=== PATIENT | female | born 1970 | race Caucasian/White ===

== ENCOUNTER 2017-07-21 15:45 | Observation (INO) | payer OTHER ==
--- NOTE | 2017-07-21 15:55 | PDOC ---
History of Present Illness <Mike Sahu - Last Filed: 07/21/17 15:55> - General History Source: Patient Exam Limitations: No Limitations - History of Present Illness Initial Comments: 07/21/17 16:25 46 year old female, no significant pmh, who presents to the emergency room complaining of LLQ pain that has been intermittent over the past 4 days, but significantly worsened and became constant this morning. She describes the pain as 9/10 in severity and localized to the LLQ. She noticed that the pain worsens with eating and the last time she ate was last night. She notes that she had a normal bowel movement this morning. Her menstrual cycle is irregular and her LMP was 4 months ago. Denies fever, chills, nausea, vomiting. Denies dysuria, frequency, hematuria. Denies vaginal bleeding, vaginal discharge. Allergies: NKDA Surgical hx: 3 C-sections <Kristina Brand - Last Filed: 07/21/17 16:52> - General Chief Complaint: Pain Stated Complaint: ABD PAIN Time Seen by Provider: 07/21/17 15:55 Past History - Past Medical History Anemia: Yes Asthma: No Diabetes: Yes HTN: No - Surgical History Abdominal Surgery: No - Suicide/Smoking/Psychosocial Hx Smoking Status: No Smoking History: Never smoked Number of Cigarettes Smoked Daily: 0 Cigars Per Day: 0 Hx Alcohol Use: No Drug/Substance Use Hx: No Substance Use Type: None <Mike Sahu - Last Filed: 07/21/17 15:55> <Kristina Brand - Last Filed: 07/21/17 16:52> - Past Medical History Allergies/Adverse Reactions: Allergies Allergy/AdvReac Type Severity Reaction Status Date / Time No Known Allergies Allergy Verified 03/17/15 09:32 Home Medications: Ambulatory Orders NK [No Known Home Medication] 07/21/17 Abd/GI Specific PMHX - Complaint Specific PMHX Colitis: No Diverticulitis: No Gall Bladder Disease: No GERD: No Hepatitis: No Irritable Bowel Synd (IBS): No Pancreatitis: No GI Ulcer Disease: No <Mike Sahu - Last Filed: 07/21/17 15:55> Review of Systems - Review of Systems Able to Perform ROS?: Yes Comments:: 07/21/17 16:27 CONSTITUTIONAL: Absent: fever, chills, diaphoresis, generalized weakness, malaise, loss of appetite HEENT: Absent: rhinorrhea, nasal congestion, throat pain, throat swelling, difficulty swallowing, mouth swelling, ear pain, eye pain, visual Changes CARDIOVASCULAR: Absent: chest pain, syncope, palpitations, irregular heart rate, lightheadedness , peripheral edema RESPIRATORY: Absent: cough, shortness of breath, dyspnea with exertion, orthopnea, wheezing, stridor, hemoptysis GASTROINTESTINAL: Present: LLQ abdominal pain. Absent: abdominal distension, nausea, vomiting, diarrhea, constipation, melena, hematochezia GENITOURINARY: Absent: dysuria, frequency, urgency, hesitancy, hematuria, flank pain, genital pain MUSCULOSKELETAL: Absent: myalgia, arthralgia, joint swelling SKIN: Absent: rash, itching, pallor HEMATOLOGIC/IMMUNOLOGIC: Absent: easy bleeding, easy bruising, lymphadenopathy, frequent infections ENDOCRINE: Absent: unexplained weight gain, unexplained weight loss, heat intolerance, cold intolerance NEUROLOGIC: Absent: headache, focal weakness or paresthesias, dizziness, unsteady gait, seizure, mental status changes, bladder or bowel incontinence PSYCHIATRIC: Absent: anxiety, depression, suicidal or homicidal ideation, hallucinations. <Kristina Brand - Last Filed: 07/21/17 16:52> *Physical Exam - Vital Signs Last Vital Signs Temp Pulse Resp BP Pulse Ox 98.6 F 90 18 139/91 96 07/21/17 15:45 07/21/17 15:45 07/21/17 15:45 07/21/17 15:45 07/21/17 15:45 <Mike Sahu - Last Filed: 07/21/17 15:55> - Vital Signs Last Vital Signs Temp Pulse Resp BP Pulse Ox 98.6 F 90 18 139/91 96 07/21/17 15:45 07/21/17 15:45 07/21/17 15:45 07/21/17 15:45 07/21/17 15:45 - Physical Exam Comments: 07/21/17 16:27 GENERAL: Well developed, well nourished. Awake and alert. In no acute distress. No pallor or icterus apparent. HEENT: Normocephalic, atraumatic. PERRLA, EOMI. No conjunctival pallor. Sclera are non- icteric. Moist mucous membranes. Oropharynx is clear. NECK: Supple. Full ROM. No JVD. Carotid pulses 2+ and symmetric, without bruits. No thyromegaly. No lymphadenopathy. CARDIOVASCULAR: Regular rate and rhythm. No murmurs, rubs, or gallops. Distal pulses are 2+ and symmetric. PULMONARY: No evidence of respiratory distress. Lungs clear to auscultation bilaterally. No wheezing, rales or rhonchi. ABDOMINAL: Soft. Non-distended. Midline scar from 3 prior C-sections, but no other surgery. Significant tenderness to palpation localized to the LLQ. There is some voluntary guarding, but no rebound tenderness. Hydration is adequate. Normoactive bowel sounds. PELVIC: External genitalia normal, no erythema and lesions. Cervix nulliparous without lesions. Uterus is firm and nontender not enlarged. No cervical motion tenderness. No adnexal tenderness. RECTAL: no masses and tenderness. Stool is light brown. Sent for guaiac. MUSCULOSKELETAL Normal range of motion at all joints. No bony deformities or tenderness. No CVA tenderness. EXTREMITIES: No cyanosis. No clubbing. No edema. No calf tenderness. SKIN: Warm and dry. Normal capillary refill. No rashes. No jaundice. NEUROLOGICAL: Alert, awake, appropriate. Cranial nerves 2-12 intact. PSYCHIATRIC: Cooperative. Good eye contact. Appropriate mood and affect. <Kristina Brand - Last Filed: 07/21/17 16:52> ED Treatment Course - LABORATORY CBC & Chemistry Diagram: 07/21/17 16:15 07/21/17 16:15 <Kristina Brand - Last Filed: 07/21/17 16:52> *DC/Admit/Observation/Transfer <Mike Sahu - Last Filed: 07/21/17 15:55> - Attestations Scribe Attestion: 07/21/17 16:28 Documentation prepared by KARTIK Herman, acting as medical review coordinator for Mike Sahu MD. <Kristina Brand - Last Filed: 07/21/17 16:52> - Discharge Dispostion Condition at time of disposition: Stable
[2017-07-21] MEDS ORDERED: KETOROLAC TROMETHAMINE 30 MG/1 ML VIAL IVPUSH ONE (16:24)
[2017-07-21] MEDS ORDERED: ONDANSETRON 4 MG/2 ML VIAL IVPB ONE (16:24)
[2017-07-21] MEDS ORDERED: ONDANSETRON 4 MG/2 ML VIAL ONE (16:26)
[2017-07-21] MEDS ORDERED: KETOROLAC TROMETHAMINE 30 MG/1 ML VIAL ONE (16:26)
[2017-07-21 16:35] LABS: BASOPHIL 0.9 % (0-2.0); EOSINOPHIL 1.7 % (0-4.5); MCH 27.3 pg (25.7-33.7); MCHC 33.3 g/dl (32.0-36.0); MEAN CELL VOLUME 81.8 fl (80-96); MEAN PLT VOLUME 8.8 fl (7.5-11.1); NEUTROPHILS 68.1 % (42.8-82.8); PLATELET COUNT 346 K/MM3 (134-434); RDW 13.4 % (11.6-15.6); WHITE BLOOD COUNT 9.5 K/mm3 (4.0-10.8)
[2017-07-21 16:42] LABS: URINE APPEARANCE Clear; URINE BILIRUBIN Negative (NEGATIVE); URINE BLOOD Trace-intact (NEGATIVE); URINE COLOR YELLOW; URINE GLUCOSE (UA) Negative (NEGATIVE); URINE KETONE Negative (NEGATIVE); URINE LEUK ESTERASE Negative (NEGATIVE); URINE NITRITE Negative (NEGATIVE); URINE PROTEIN Negative (NEGATIVE); URINE UROBILINOGEN 0.2 (0.2-1.0)
[2017-07-21 16:49] LABS: ALK PHOS 86 U/L (32-92); ANION GAP 9 (8-16); BILIRUBIN,TOTAL 0.4 mg/dl (0.2-1.0); CALCIUM 9.7 mg/dl (8.4-10.2); CO2 26 mmol/L (22-28); CREATININE 0.7 mg/dl (0.6-1.3); GLUCOSE,RANDOM 166 mg/dl (74-106); SGOT/AST 67 U/L (10-42); SGPT/ALT 70 U/L (10-40); TOT PROT 7.2 g/dl (6.4-8.3)
[2017-07-21 17:20] LABS: URINE WBC 0-1 (3-5)
--- NOTE | 2017-07-21 19:31 | PDOC ---
*Physical Exam - Vital Signs Last Vital Signs Temp Pulse Resp BP Pulse Ox 98.6 F 90 18 139/91 96 07/21/17 15:45 07/21/17 15:45 07/21/17 15:45 07/21/17 15:45 07/21/17 15:45 <CathieKristina - Last Filed: 07/21/17 21:04> - Vital Signs Last Vital Signs Temp Pulse Resp BP Pulse Ox 98.6 F 90 18 139/91 96 07/21/17 15:45 07/21/17 15:45 07/21/17 15:45 07/21/17 15:45 07/21/17 15:45 <Teo Del Rio I - Last Filed: 07/21/17 21:36> ED Treatment Course - LABORATORY CBC & Chemistry Diagram: 07/21/17 16:15 07/21/17 16:15 - ADDITIONAL ORDERS Additional order review: Laboratory Results 07/21/17 07/21/17 07/21/17 16:45 16:39 16:15 Sodium 134 L Potassium 4.0 Chloride 99 Carbon Dioxide 26 Anion Gap 9 BUN 16 Creatinine 0.7 D Creat Clearance w eGFR > 60 Random Glucose 166 H D Calcium 9.7 Total Bilirubin 0.4 AST 67 H D ALT 70 H D Alkaline Phosphatase 86 D Total Protein 7.2 Albumin 4.0 Urine Color Yellow Urine Appearance Clear Urine pH 7.0 D Ur Specific [place] 1.020 Urine Protein Negative Urine Glucose (UA) Negative Urine Ketones Negative Urine Blood Trace-intact H Urine Nitrite Negative Urine Bilirubin Negative Urine Urobilinogen 0.2 Ur Leukocyte Esterase Negative Urine RBC 2-4 Urine WBC 0-1 Urine HCG, Qual Negative Stool Occult Blood Negative 07/21/17 16:15 RBC 4.86 MCV 81.8 D MCHC 33.3 RDW 13.4 D MPV 8.8 D Neutrophils % 68.1 Lymphocytes % 23.4 Monocytes % 5.9 Eosinophils % 1.7 Basophils % 0.9 - RADIOLOGY Radiograph Interpretation: 07/21/17 20:07 EXAM#: TYPE/EXAM: RESULT: [id number] CT/ABDOMEN PELVIS CT WITH CONTR Exam: CT abdomen and pelvis with contrast. Impression: 1. Acute sigmoid diverticulitis as described above with two punctate extraluminal gas locules adjacent to the inflamed sigmoid colon suggesting contained microperforation. No drainable collection within the abdomen or pelvis. 2. Hepatomegaly and severe hepatic steatosis. Areas of relative hyperattenuation in the liver as described above most likely represent geographic areas of fatty sparing and/or vascular changes ( i.e. [place]). Reported By: Sancho Mercado MD 07/21/171999 - Medications Given in the ED: ED Medications Discontinued Medications Generic Name Dose Route Start Last Admin Trade Name Freq PRN Reason Stop Dose Admin Ketorolac Tromethamine 30 mg 07/21/17 16:24 07/21/17 16:32 Toradol Injection - IVPUSH 07/21/17 16:25 30 mg ONCE ONE Administration Ondansetron HCl 4 mg 07/21/17 16:24 07/21/17 16:30 Zofran Injection IVPB 07/21/17 16:25 4 mg ONCE ONE Administration <Kristina Brand - Last Filed: 07/21/17 21:04> - LABORATORY CBC & Chemistry Diagram: 07/21/17 16:15 07/21/17 16:15 - ADDITIONAL ORDERS Additional order review: Laboratory Results 07/21/17 07/21/17 07/21/17 16:45 16:39 16:15 Sodium 134 L Potassium 4.0 Chloride 99 Carbon Dioxide 26 Anion Gap 9 BUN 16 Creatinine 0.7 D Creat Clearance w eGFR > 60 Random Glucose 166 H D Calcium 9.7 Total Bilirubin 0.4 AST 67 H D ALT 70 H D Alkaline Phosphatase 86 D Total Protein 7.2 Albumin 4.0 Urine Color Yellow Urine Appearance Clear Urine pH 7.0 D Ur Specific [place] 1.020 Urine Protein Negative Urine Glucose (UA) Negative Urine Ketones Negative Urine Blood Trace-intact H Urine Nitrite Negative Urine Bilirubin Negative Urine Urobilinogen 0.2 Ur Leukocyte Esterase Negative Urine RBC 2-4 Urine WBC 0-1 Urine HCG, Qual Negative Stool Occult Blood Negative 07/21/17 16:15 RBC 4.86 MCV 81.8 D MCHC 33.3 RDW 13.4 D MPV 8.8 D Neutrophils % 68.1 Lymphocytes % 23.4 Monocytes % 5.9 Eosinophils % 1.7 Basophils % 0.9 - Medications Given in the ED: ED Medications Discontinued Medications Generic Name Dose Route Start Last Admin Trade Name Freq PRN Reason Stop Dose Admin Ketorolac Tromethamine 30 mg 07/21/17 16:24 07/21/17 16:32 Toradol Injection - IVPUSH 07/21/17 16:25 30 mg ONCE ONE Administration Ondansetron HCl 4 mg 07/21/17 16:24 07/21/17 16:30 Zofran Injection IVPB 07/21/17 16:25 4 mg ONCE ONE Administration <Teo Del Rio I - Last Filed: 07/21/17 21:36> Progress Note - Progress Note Progress Note: Care of this patient was transferred to [place] from Dr. Pires at 1900 hrs. This is a 46-year-old female comes in complaining of left lower quadrant abdominal pain. Patient has a workup in progress including a CAT scan that is still pending. Otherwise patient's workup is relatively unremarkable with a normal white count and no left shift. Mildly elevated glucose sodium is a little bit low and LFTs are mildly elevated otherwise chemistries were unremarkable. Discussed the CAT scan findings with Dr. Carreno who recommended patient be placed in an observation bed overnight and reevaluated in the morning to make sure that her symptoms have improved she remains afebrile her white count remains normal and she is able to tolerate by mouth's in addition to that patient doesn't have a primary care doctor to follow-up with so we will contact her with a GI <Teo Del Rio I - Last Filed: 07/21/17 21:36> Medical Decision Making - Medical Decision Making 07/21/17 21:[address] Carreno for doctor to doctor consult at 8:17pm Second page at 9:04pm. Connected and spoke with Dr. Hammond. <Kristina Brand - Last Filed: 07/21/17 21:04> *DC/Admit/Observation/Transfer <Kristina Brand - Last Filed: 07/21/17 21:04> - Discharge Dispostion Admit: Yes <Teo Del Rio I - Last Filed: 07/21/17 21:36> Diagnosis at time of Disposition: Diverticulitis Qualifiers: Diverticulitis site: large intestine Diverticulitis bleeding: without bleeding Diverticulitis complication: with perforation and without abscess Qualified Code (s): K57.20 - Diverticulitis of large intestine with perforation and abscess without bleeding - Discharge Dispostion Condition at time of disposition: Stable
[2017-07-21] MEDS ORDERED: METRONIDAZOLE 500 MG PREMIXED 100 ML IVPB ONE ×2 (20:13→20:22)
[2017-07-21] MEDS ORDERED: LEVOFLOXACIN 500 MG IVPB 100 ML IVPB ONE ×3 (20:21→20:29)
[2017-07-21] MEDS ORDERED: ONDANSETRON 4 MG/2 ML VIAL IVPUSH PRN (21:27)
[2017-07-21] MEDS ORDERED: morphine CARPU-JECT 4 MG/1 ML DISP.SYRIN IVPUSH ONE (21:32)
[2017-07-21] MEDS ORDERED: morphine SULFATE 4 MG/ML VIAL ONE (21:41)
[2017-07-21 22:21] VITALS: BMI 41.5
[2017-07-21] MEDS: SODIUM CHLORIDE 1,000 ML IV SCH (22:33)
[2017-07-21] MEDS: INSULIN SLIDING SCALE (NOVOLOG) 1 VIAL SQ SCH (22:34)
--- NOTE | 2017-07-21 23:05 | HP ---
CHIEF COMPLAINT: LLQ abd pain PCP: Dr Plaza HISTORY OF PRESENT ILLNESS: This is a 46 year old female with a significant past medical history of pre- diabetes who presented to the ED with a 4 day history of abdominal pain. The pain was intermittent and crampy until this morning around 10am when it became persistent and severe. She denies N,V,D. ER course was notable for: (1) WBC 9.5 (2) Glucose 166, sodium 134 (3) CT Abd pelvis c/w diverticulitis with microperforations Recent Travel: pt denies PAST MEDICAL HISTORY: pre DM Anemia abscess-Perirectal? pilonidal cyst? PAST SURGICAL HISTORY: Social History: Smoking: pt denies Alcohol: pt denies Drugs: pt denies Family History: mother with DM, HTN, arthritis father with DM, HTN 7 sisters, 1 with DM, HTN 2 brothers, no medical problems 3 children all healthy Allergies No Known Allergies Allergy (Verified 03/17/15 09:32) HOME MEDICATIONS: 3 Medication Instructions Recorded NK [No Known Home Medication] 07/21/17 REVIEW OF SYSTEMS CONSTITUTIONAL: Absent: fever, chills, diaphoresis, generalized weakness, malaise, loss of appetite, weight change HEENT: Absent: rhinorrhea, nasal congestion, throat pain, throat swelling, difficulty swallowing, mouth swelling, ear pain, eye pain, visual changes CARDIOVASCULAR: Absent: chest pain, syncope, palpitations, irregular heart rate, lightheadedness , peripheral edema RESPIRATORY: Absent: cough, shortness of breath, dyspnea with exertion, orthopnea, wheezing, stridor, hemoptysis GASTROINTESTINAL: abdominal pain Absent: abdominal distension, nausea, vomiting, diarrhea, constipation, melena, hematochezia GENITOURINARY: Absent: dysuria, frequency, urgency, hesitancy, hematuria, flank pain, genital pain MUSCULOSKELETAL: Absent: myalgia, arthralgia, joint swelling, back pain, neck pain SKIN: Absent: rash, itching, pallor HEMATOLOGIC/IMMUNOLOGIC: Absent: easy bleeding, easy bruising, lymphadenopathy, frequent infections ENDOCRINE: Absent: unexplained weight gain, unexplained weight loss, heat intolerance, cold intolerance NEUROLOGIC: Absent: headache, focal weakness or paresthesias, dizziness, unsteady gait, seizure, mental status changes, bladder or bowel incontinence PSYCHIATRIC: Absent: anxiety, depression, suicidal or homicidal ideation, hallucinations. PHYSICAL EXAMINATION Vital Signs - 24 hr 3 07/21/17 07/21/17 15:45 21:36 Temperature 98.6 F 98.3 F Pulse Rate 90 Respiratory 18 Rate Blood Pressure 139/91 O2 Sat by Pulse 96 Oximetry (%) GENERAL: Awake, alert, and fully oriented, in no acute distress. HEAD: Normal with no signs of trauma. EYES: Pupils equal, round and reactive to light, extraocular movements intact, sclera anicteric, conjunctiva clear. No lid lag. EARS, NOSE, THROAT: Ears normal, nares patent, oropharynx clear without exudates. Moist mucous membranes. NECK: Normal range of motion, supple without lymphadenopathy, JVD, or masses. LUNGS: Breath sounds equal, clear to auscultation bilaterally. No wheezes, and no crackles. No accessory muscle use. HEART: Regular rate and rhythm, normal S1 and S2 without murmur, rub or gallop. ABDOMEN: Obese, Soft, not distended, normoactive bowel sounds, + guarding, no rebound, no masses. No hepatomegaly or splenomegaly. B/L LQ pain, L>R MUSCULOSKELETAL: Normal range of motion at all joints. No bony deformities or tenderness. No CVA tenderness. UPPER EXTREMITIES: 2+ pulses, warm, well-perfused. No cyanosis. No clubbing. No peripheral edema. LOWER EXTREMITIES: 2+ pulses, warm, well-perfused. No calf tenderness. No peripheral edema. NEUROLOGICAL: Cranial nerves II-XII intact. Normal speech. Normal gait. PSYCHIATRIC: Cooperative. Good eye contact. Appropriate mood and affect. SKIN: Warm, dry, normal turgor, no rashes or lesions noted, normal capillary refill. Laboratory Results - last 24 hr 3 07/21/17 07/21/17 07/21/17 07/21/17 16:15 16:15 16:39 16:45 WBC 9.5 D RBC 4.86 Hgb 13.3 D Hct 39.8 D MCV 81.8 D MCH 27.3 D MCHC 33.3 RDW 13.4 D Plt Count 346 D MPV 8.8 D Neutrophils % 68.1 Lymphocytes % 23.4 Monocytes % 5.9 Eosinophils % 1.7 Basophils % 0.9 Sodium 134 L Potassium 4.0 Chloride 99 Carbon Dioxide 26 Anion Gap 9 BUN 16 Creatinine 0.7 D Creat Clearance w eGFR > 60 POC Glucometer Random Glucose 166 H D Calcium 9.7 Total Bilirubin 0.4 AST 67 H D ALT 70 H D Alkaline Phosphatase 86 D Total Protein 7.2 Albumin 4.0 Urine Color Yellow Urine Appearance Clear Urine pH 7.0 D Ur Specific [place] 1.020 Urine Protein Negative Urine Glucose (UA) Negative Urine Ketones Negative Urine Blood Trace-intact H Urine Nitrite Negative Urine Bilirubin Negative Urine Urobilinogen 0.2 Ur Leukocyte Esterase Negative Urine RBC 2-4 Urine WBC 0-1 Urine HCG, Qual Negative Stool Occult Blood Negative ASSESSMENT/PLAN: This is a 46yF with PMH preDM and anemia who presented to the ED with LLQ pain x 4 days. She is being admitted for observation for acute diverticulitis. Acute diverticulitis with microperforation - flagyl 500mg Q8h - levaquin 750 QD - Clear liquids in AM - surgical consult PreDM - sugar 166 on admission, will check A1C - BGM AC/HS with novolog sliding scale FEN - NS @ 75cc/hr - BMP in am - clear liquids in AM Dispo: pt currently requires inpatient observation for management of her emergent medical condition. Visit type - Emergency Visit Emergency Visit: Yes ED Registration Date: 07/21/17 Care time: The patient presented to the Emergency Department on the above date and was hospitalized for further evaluation of their emergent condition. - New Patient This patient is new to me today: Yes Date on this admission: 07/21/17 - Critical Care Critical Care patient: No
[2017-07-22] MEDS: METRONIDAZOLE 500 MG PREMIXED 100 ML IVPB SCH ×3 (01:10→17:59)
[2017-07-22] MEDS ORDERED: morphine CARPU-JECT 2 MG/1 ML DISP.SYRIN IVPUSH PRN (03:32)
[2017-07-22] MEDS ORDERED: morphine CARPU-JECT 2 MG/1 ML DISP.SYRIN ONE (03:39)
[2017-07-22] MEDS: INSULIN SLIDING SCALE (NOVOLOG) 1 VIAL SQ SCH ×3 (07:30→17:00)
[2017-07-22 07:51] LABS: BASOPHIL 0.5 % (0-2.0); EOSINOPHIL 1.9 % (0-4.5); MCH 27.7 pg (25.7-33.7); MCHC 33.5 g/dl (32.0-36.0); MEAN CELL VOLUME 82.6 fl (80-96); MEAN PLT VOLUME 8.2 fl (7.5-11.1); NEUTROPHILS 64.3 % (42.8-82.8); PLATELET COUNT 306 K/MM3 (134-434); RDW 13.4 % (11.6-15.6); WHITE BLOOD COUNT 6.9 K/mm3 (4.0-10.8)
[2017-07-22 08:11] LABS: ANION GAP 7 (8-16); CO2 25 mmol/L (22-28); CREATININE 0.6 mg/dl (0.6-1.3); GLUCOSE,RANDOM 125 mg/dl (74-106); MAGNESIUM 1.9 mg/dL (1.8-2.4)
[2017-07-22] MEDS ORDERED: FLU VACCINE QUAD 60 MCG/0.5 ML (MDV 17-18) IM ONE (11:00)
--- NOTE | 2017-07-22 11:20 | CONSULT ---
Consult Consult Specialty:: Surgery Reason for Consultation:: Acute diverticulitis - History of Present Illness Chief Complaint: Abdominal pain History of Present Illness: 46-year old woman. She presented to the ED yesterday with a 4 day history of left lower quadrant abdominal pain.The pain was initially crampy and intermittent but became severe and persistent prompting her to go to the hospital. She denies nausea, vomiting, or diarrhea. In the ED she was noted to be afebrile with a WBC of 9.5. CT was consistent with acute diverticulitis. She was started on antibiotics and admitted for observation. She feels better this morning and the pain has lessened. - History Source History Provided By: Patient Limitations to Obtaining History: No Limitations - Past Medical History ...LMP: 04/20/17 ...: No - Past Surgical History Past Surgical History: Yes: - Alcohol/Substance Use Hx Alcohol Use: No - Smoking History Smoking history: Never smoked Aproximately how many cigarettes per day: 0 Home Medications - Allergies Allergies/Adverse Reactions: Allergies Allergy/AdvReac Type Severity Reaction Status Date / Time No Known Allergies Allergy Verified 03/17/15 09:32 - Home Medications Home Medications: Ambulatory Orders NK [No Known Home Medication] 07/21/17 Review of Systems - Review of Systems Gastrointestinal: reports: Abdominal Pain Physical Exam Vital Signs: Vital Signs Temperature 97.7 F 07/22/17 09:09 Pulse Rate 90 07/22/17 09:09 Respiratory Rate 18 07/22/17 09:09 Blood Pressure 148/91 07/22/17 09:09 O2 Sat by Pulse Oximetry (%) 97 07/22/17 05:53 Constitutional: Yes: Well Nourished, No Distress Cardiovascular: Yes: Regular Rate and Rhythm Gastrointestinal: Yes: Soft, Abdomen, Obese, Tenderness (tenderness to palpation in left lower quadrant and suprapubic region; no guarding or rebound.) ...Rectal Exam: Yes: Deferred Neurological: Yes: Alert, Oriented Labs: CBC, BMP 07/22/17 07:00 07/22/17 07:00 Imaging - Results Cat Scan: Report Reviewed, Image Reviewed Assessment/Plan 46-year old woman with left lower quadrant pain for 4 days. Physical exam, labs , and imaging are c/w acute diverticulitis. She has improved on antibiotics. She is tolerating clears. If she continues to improve and remains afebrile she can be discharged home on oral antibiotics. She should follow-up with GI upon discharge.
--- NOTE | 2017-07-22 12:54 | PN ---
Physical Exam: SUBJECTIVE: Patient seen and examined, patient reports abdominal pain has improved, patient denies any tactile fever OBJECTIVE: patient is a 46 y/o female with a past medical history of pre- diabetes, patient was admitted from the emergency department for diverticulitis with microperforation. Vital Signs Period Temp Pulse Resp BP Sys/Valles Pulse Ox Last 24 Hr 97.7 F-99.0 F 77-90 18-20 99-148/58-91 97-98 GENERAL: obese, patient is awake, alert, and fully oriented, in no acute distress. HEAD: Normal with no signs of trauma. EYES: PERRL, extraocular movements intact, sclera anicteric, conjunctiva clear. No ptosis. ENT: Ears normal, nares patent, oropharynx clear without exudates, moist mucous membranes. NECK: Trachea midline, full range of motion, supple. LUNGS: Breath sounds equal, clear to auscultation bilaterally, no wheezes, no crackles, no accessory muscle use. HEART: Regular rate and rhythm, S1, S2 without murmur, rub or gallop. ABDOMEN: Soft, + left lower quadrant tenderness, nontender, nondistended, normoactive bowel sounds, no guarding, no rebound, no hepatosplenomegaly, no masses. EXTREMITIES: 2+ pulses, warm, well-perfused, no edema. NEUROLOGICAL: Cranial nerves II through XII grossly intact. Normal speech, gait not observed. PSYCH: Normal mood, normal affect. SKIN: Warm, dry, normal turgor, no rashes or lesions noted Laboratory Results - last 24 hr 07/21/17 07/22/17 07/22/17 22:29 07:00 07:00 WBC 6.9 RBC 4.48 Hgb 12.4 Hct 37.0 MCV 82.6 MCH 27.7 MCHC 33.5 RDW 13.4 Plt Count 306 MPV 8.2 Neutrophils % 64.3 Lymphocytes % 25.6 Monocytes % 7.7 Eosinophils % 1.9 Basophils % 0.5 Sodium 135 L Potassium 4.2 Chloride 103 Carbon Dioxide 25 Anion Gap 7 L BUN 10 D Creatinine 0.6 POC Glucometer 128 Random Glucose 125 H D Calcium 9.0 Phosphorus 4.0 Magnesium 1.9 07/22/17 12:04 WBC RBC Hgb Hct MCV MCH MCHC RDW Plt Count MPV Neutrophils % Lymphocytes % Monocytes % Eosinophils % Basophils % Sodium Potassium Chloride Carbon Dioxide Anion Gap BUN Creatinine POC Glucometer 91 Random Glucose Calcium Phosphorus Magnesium Active Medications Generic Name Dose Route Start Last Admin Trade Name Freq PRN Reason Stop Dose Admin Sodium Chloride 1,000 mls @ 75 mls/hr 07/21/17 21:30 07/21/17 22:33 Normal Saline - IV 75 mls/hr ASDIR ERIN Administration Levofloxacin 150 mls @ 150 mls/hr 07/22/17 22:00 Levaquin 750 Mg Premixed Ivpb - IVPB HS ERIN Metronidazole 100 mls @ 100 mls/hr 07/22/17 02:00 07/22/17 09:26 Flagyl 500mg Premixed Ivpb - IVPB 100 mls/hr Q8H-IV ERIN Administration Insulin Aspart 1 vial 07/21/17 22:00 07/22/17 07:30 Novolog Vial Sliding Scale - SQ Not Given ACHS ERIN Protocol Morphine Sulfate 2 mg 07/22/17 03:32 Morphine Injection - IVPUSH Q4H PRN PAIN Ondansetron HCl 4 mg 07/21/17 21:27 Zofran Injection IVPUSH Q6H PRN NAUSEA ASSESSMENT/PLAN: 1) acute diverticulitis with microperforation - flagyl 500mg Q8h and levaquin 750 QD - continue Clear liquids then advance as tolerated - pt is afebrile, no leukocytosis noted - Dr Diop, surgery consulted and following - patient will require outpatient follow up with GI 2) enod hyperglycemia - pending hgb a1c - BGM AC/HS with novolog sliding scale FEN - NS @ 75cc/hr - replete lytes prn - clear liquids then advance as tolerated Dispo: pt currently requires inpatient observation for management of her emergent medical condition. Visit type - Emergency Visit Emergency Visit: Yes ED Registration Date: 07/21/17 Care time: The patient presented to the Emergency Department on the above date and was hospitalized for further evaluation of their emergent condition. - New Patient This patient is new to me today: Yes Date on this admission: 07/22/17 - Critical Care Critical Care patient: No - Discharge Referral Referred to [facility] Med [facility] No
[2017-07-22] MEDS ORDERED: LEVOFLOXACIN 750 MG IVPB 150 ML IVPB SCH (22:00)
[2017-07-23] MEDS: SODIUM CHLORIDE 1,000 ML IV SCH (01:11)
[2017-07-23] MEDS: INSULIN SLIDING SCALE (NOVOLOG) 1 VIAL SQ SCH ×2 (01:11→07:24)
[2017-07-23] MEDS: METRONIDAZOLE 500 MG PREMIXED 100 ML IVPB SCH ×2 (02:08→10:00)
[2017-07-23 07:08] VITALS: BP 110/61; PULSE 74; TEMP 98.3
--- NOTE | 2017-07-23 10:13 | PN ---
Progress Note, Physician Chief Complaint: lower abdominal pain History of Present Illness: The patient was admitted through the ER with a history of left lower quadrant abdominal pain and CT scan consistent with a sigmoid diverticulitis with possible microperforation. She was admitted and placed on IV levoquin. - Current Medication List Current Medications: Active Medications Sodium Chloride (Normal Saline -) 1,000 mls @ 75 mls/hr IV ASDIR ERIN Last Admin: 07/23/17 01:11 Dose: 75 mls/hr Levofloxacin (Levaquin 750 Mg Premixed Ivpb -) 150 mls @ 150 mls/hr IVPB HS ERIN Last Admin: 07/22/17 21:25 Dose: 150 mls/hr Metronidazole (Flagyl 500mg Premixed Ivpb -) 100 mls @ 100 mls/hr IVPB Q8H-IV ERIN Last Admin: 07/23/17 02:08 Dose: 100 mls/hr Insulin Aspart (Novolog Vial Sliding Scale -) 1 vial SQ ACHS ERIN PRN Reason: Protocol Last Admin: 07/23/17 07:24 Dose: Not Given Morphine Sulfate (Morphine Injection -) 2 mg IVPUSH Q4H PRN PRN Reason: FOR PAIN LEVEL 7-10 Ondansetron HCl (Zofran Injection) 4 mg IVPUSH Q6H PRN PRN Reason: NAUSEA Oxycodone/Acetaminophen (Percocet 5/325 -) 1 combo PO Q4H PRN PRN Reason: PAIN LEVEL 1-6 - Objective Vital Signs: Vital Signs Temperature 98.3 F 07/23/17 06:00 Pulse Rate 74 07/23/17 06:00 Respiratory Rate 17 07/23/17 06:00 Blood Pressure 110/61 07/23/17 06:00 O2 Sat by Pulse Oximetry (%) 98 07/23/17 07:04 Constitutional: Yes: Well Nourished, No Distress, Calm Eyes: Yes: WNL HENT: Yes: WNL Neck: Yes: WNL Cardiovascular: Yes: Regular Rate and Rhythm Respiratory: Yes: Regular, CTA Bilaterally Gastrointestinal: Yes: Normal Bowel Sounds, Soft ...Rectal Exam: Yes: Deferred Genitourinary: Yes: WNL Musculoskeletal: Yes: WNL Extremities: Yes: WNL Integumentary: Yes: WNL Neurological: Yes: Alert, Oriented ...Motor Strength: WNL Psychiatric: Yes: WNL Labs: CBC, BMP 07/22/17 07:00 07/22/17 07:00 Problem List - Problems (1) Diverticulitis Assessment/Plan: The patient remains afebrile with stable vital signs. Her abdominal pain has resolved and her WBC remains normal. She is tolerating a clear liquid diet. She is stable for discharge today. Continue po levoquin for another week. Needs GI follow up and diet sheet for diverticulitis. Code(s): K57.92 - DVTRCLI OF INTEST, PART UNSP, W/O PERF OR ABSCESS W/O BLEED Qualifiers: Diverticulitis site: large intestine Diverticulitis bleeding: without bleeding Diverticulitis complication: with perforation and without abscess Qualified Code(s): K57.20 - Diverticulitis of large intestine with perforation and abscess without bleeding; K57.20 - Diverticulitis of large intestine with perforation and abscess without bleeding
--- NOTE | 2017-07-23 11:46 | DS ---
Physical Exam: SUBJECTIVE: Patient seen and examined OBJECTIVE: Vital Signs Period Temp Pulse Resp BP Sys/Valles Pulse Ox Last 24 Hr 98.3 F-98.8 F 74-77 17-18 108-110/61-62 97-98 PHYSICAL EXAM GENERAL: The patient is awake, alert, and fully oriented, in no acute distress. HEAD: Normal with no signs of trauma. EYES: PERRL, extraocular movements intact, sclera anicteric, conjunctiva clear. ENT: Ears normal, nares patent, oropharynx clear without exudates, moist mucous membranes. NECK: Trachea midline, full range of motion, supple. LUNGS: Breath sounds equal, clear to auscultation bilaterally, no wheezes, no crackles, no accessory muscle use. HEART: Regular rate and rhythm, S1, S2 without murmur, rub or gallop. ABDOMEN: Soft, nontender, nondistended, normoactive bowel sounds, no guarding, no rebound, no hepatosplenomegaly, no masses. EXTREMITIES: 2+ pulses, warm, well-perfused, no edema. NEUROLOGICAL: Cranial nerves II through XII grossly intact. Normal speech, gait not observed. PSYCH: Normal mood, normal affect. SKIN: Warm, dry, normal turgor, no rashes or lesions noted. LABS Laboratory Results - last 24 hr 07/22/17 07/22/17 07/22/17 07:00 12:04 16:50 POC Glucometer 91 100 Hemoglobin A1c % 7.4 H 07/22/17 07/23/17 22:16 06:54 POC Glucometer 116 129 Hemoglobin A1c % HOSPITAL COURSE: Date of Admission:07/21/17 Date of Discharge: 07/23/17 Discharge Summary Reason For Visit: DIVERTICULITIS Current Active Problems Diverticulitis (Acute) Condition: Stable - Instructions Diet, Activity, Other Instructions: Return to the Emergency Department for new, worsening or persistent symptoms. Resume your usual activities and diet as tolerated. Finish ALL your antibiotics. Your Hemoglobin A1C (a marker for diabetes) was elevated at 7.4 Please follow up with your primary care physician for further treatment. I would recommend starting you on metformin when you complete your antibiotics. Referrals: Ismael Painting MD [Staff Physician] - 1 Week Disposition: HOME - Home Medications Comprehensive Discharge Medication List: Ambulatory Orders Levofloxacin [Levaquin] 500 mg PO DAILY 7 Days 07/23/17 Metronidazole 500 mg PO Q8H #21 tablet 07/23/17 - Discharge Referral Referred to [facility] No
== END 2017-07-23 12:39 | disposition home or self-care (01) ==
LOC: FER 15:45 → FM/S 21:36
PROVIDERS: ADMIT Internal Medicine; ATTEND Nurse Practitioner Family
PROC: 3E03329 Introduction of Other Anti-infective into Peripheral Vein, Percutaneous Approach (ICD-10-PCS; principal; 2017-07-21)
PROC: 3E033NZ Introduction of Analgesics, Hypnotics, Sedatives into Peripheral Vein, Percutaneous Approach (ICD-10-PCS; 2017-07-21)
PROC: 3E033GC Introduction of Other Therapeutic Substance into Peripheral Vein, Percutaneous Approach (ICD-10-PCS; 2017-07-21)
PROC: 3E0337Z Introduction of Electrolytic and Water Balance Substance into Peripheral Vein, Percutaneous Approach (ICD-10-PCS; 2017-07-21)
PROC: 3E0234Z Introduction of Serum, Toxoid and Vaccine into Muscle, Percutaneous Approach (ICD-10-PCS; 2017-07-21)
DX: K57.20 Diverticulitis of large intestine with perforation and abscess without bleeding (principal); R73.03 Prediabetes
CPT/HCPCS: 36415; 74177-TC; 80048; 80053; 81003; 81015; 82272; 83036; 83735; 84100; 84703; 85025; 87491; 87591; 90471; 90688; 96365; 96367; 96375; 99285-25; G0378

== ENCOUNTER 2018-06-21 14:00 | Emergency (ER) | payer OTHER ==
[2018-06-21 14:07] VITALS: BP 139/96; PULSE 88; TEMP 99; BMI 41.0
--- NOTE | 2018-06-21 14:26 | PDOC ---
History of Present Illness - General Chief Complaint: Rash Stated Complaint: RASH UNDER BOTH BREAST Time Seen by Provider: 06/21/18 14:22 - History of Present Illness Initial Comments: 06/21/18 15:34 Chief complaint: Rash History of present illness: Itchy rash under the left breast for about 1 week, minimal oozing of clear fluid. Review of systems: No itching or rash in the genital area, but some mild itching without rash under the right breast. No fever/chills or other systemic symptoms Past medical history: Healthy female, no active medical or surgical problems, no diabetes Social/family history reviewed and noncontributory Physical exam: Alert oriented 3 well-developed well-nourished no acute distress cheerful and cooperative Afebrile, vital signs normal HEENT clear Neck supple without bruit mass or nodes Lungs clear CV regular without murmur rub or gallop Abdomen benign Skin: Intertrigo of the skin beneath the left breast, erythematous, pruritic, but not purulent or indurated. Impression: Yeast infection Plan: Topical therapy, follow-up if no improvement. Past History - Past Medical History Allergies/Adverse Reactions: Allergies Allergy/AdvReac Type Severity Reaction Status Date / Time No Known Allergies Allergy Verified 06/21/18 14:01 Home Medications: Ambulatory Orders Diphenhydramine [Benadryl -] 50 mg PO HS #10 capsule 06/21/18 Nystatin/Triamcinolone Top Cr [Mycolog II Cream -] 1 applic TP BID #1 tube 06/21 Anemia: Yes Asthma: No Cancer: No Cardiac Disorders: No CVA: No COPD: No CHF: No Dementia: No Diabetes: No GI Disorders: No Disorders: No HTN: No Hypercholesterolemia: No Liver Disease: No Seizures: No Thyroid Disease: No - Surgical History Abdominal Surgery: No - Suicide/Smoking/Psychosocial Hx Smoking Status: No Smoking History: Never smoked Number of Cigarettes Smoked Daily: 0 Cigars Per Day: 0 Information on smoking cessation initiated: No Hx Alcohol Use: No Drug/Substance Use Hx: No Substance Use Type: None Hx Substance Use Treatment: No *Physical Exam - Vital Signs Last Vital Signs Temp Pulse Resp BP Pulse Ox 99 F 88 16 139/96 100 06/21/18 14:01 06/21/18 14:01 06/21/18 14:01 06/21/18 14:01 06/21/18 14:01 *DC/Admit/Observation/Transfer Diagnosis at time of Disposition: Yeast infection of the skin - Discharge Dispostion Disposition: HOME Condition at time of disposition: Stable Decision to Admit order: No - Prescriptions Prescriptions: Diphenhydramine [Benadryl -] 50 mg PO HS #10 capsule Nystatin/Triamcinolone Top Cr [Mycolog II Cream -] 1 applic TP BID #1 tube - Referrals - Patient Instructions Printed Discharge Instructions: DI for Yeast Infection-Skin - Post Discharge Activity
== END 2018-06-21 14:41 | disposition home or self-care (01) ==
LOC: FER 14:00
DX: B37.2 Candidiasis of skin and nail (principal)
CPT/HCPCS: 99281-25

== ENCOUNTER 2018-06-26 09:02 | Emergency (ER) | payer OTHER ==
[2018-06-26 09:08] VITALS: BP 110/60; PULSE 79; TEMP 98.7; BMI 41.0
[2018-06-26] MEDS ORDERED: IBUPROFEN 400 MG TABLET (FP) PO ONE ×2 (09:09→09:29)
--- NOTE | 2018-06-26 09:24 | PDOC ---
History of Present Illness - General Chief Complaint: Injury Stated Complaint: LEFT KNEE PAIN Time Seen by Provider: 06/26/18 09:04 History Source: Patient Exam Limitations: No Limitations - History of Present Illness Initial Comments: 06/26/18 09:13 Patient is a 47F with no significant medical history here today complaining of L knee pain that started after her shoe came undone this morning. Patient reports twisting her knee at that time. No fall, no direct trauma. Patient states that she was able to walk after the incident. Denies fevers, chills, nausea, vomiting. Denies leg swelling, feeling unbalanced. Past History - Past Medical History Allergies/Adverse Reactions: Allergies Allergy/AdvReac Type Severity Reaction Status Date / Time No Known Allergies Allergy Verified 06/26/18 09:03 Home Medications: Ambulatory Orders Multivitamin [One Daily] 1 each PO DAILY 06/26/18 [place]-3 Fatty Acids [[place]-3] 1,000 mg PO DAILY 06/26/18 Anemia: Yes Asthma: No Cancer: No Cardiac Disorders: No CVA: No COPD: No CHF: No Dementia: No Diabetes: No GI Disorders: No Disorders: No HTN: No Hypercholesterolemia: No Liver Disease: No Seizures: No Thyroid Disease: No - Surgical History Abdominal Surgery: No - Suicide/Smoking/Psychosocial Hx Smoking Status: No Smoking History: Never smoked Have you smoked in the past 12 months: No Number of Cigarettes Smoked Daily: 0 Cigars Per Day: 0 Hx Alcohol Use: No Drug/Substance Use Hx: No Substance Use Type: None Hx Substance Use Treatment: No Review of Systems - Review of Systems Able to Perform ROS?: Yes Comments:: 06/26/18 09:25 GENERAL/CONSTITUTIONAL: No fever or chills. No weakness. HEAD, EYES, EARS, NOSE AND THROAT: No change in vision. No sore throat. CARDIOVASCULAR: No chest pain or shortness of breath RESPIRATORY: No cough, wheezing, or hemoptysis. GASTROINTESTINAL: No nausea, vomiting, diarrhea or constipation. GENITOURINARY: No dysuria, frequency, or change in urination. MUSCULOSKELETAL: +L knee pain. No neck or back pain. SKIN: No rash NEUROLOGIC: No headache, vertigo, loss of consciousness, or change in strength/ sensation. ENDOCRINE: No increased thirst. No abnormal weight change HEMATOLOGIC/LYMPHATIC: No anemia, easy bleeding, or history of blood clots. ALLERGIC/IMMUNOLOGIC: No hives or skin allergy. *Physical Exam - Vital Signs Last Vital Signs Temp Pulse Resp BP Pulse Ox 98.7 F 79 18 110/60 97 06/26/18 09:02 06/26/18 09:02 06/26/18 09:02 06/26/18 09:02 06/26/18 09:02 - Physical Exam Comments: 06/26/18 09:25 GENERAL: Awake, alert, and fully oriented, in no acute distress L KNEE: Mildly tender along proximal tibial, stable joint, -alban, -yolanda, -drawer, neurovascularly intact, no deformity, normal ROM HEAD: No signs of trauma, normocephalic, atraumatic EYES: PERRLA, EOMI, sclera anicteric, conjunctiva clear ENT: Auricles normal inspection, hearing grossly normal, nares patent, oropharynx clear without exudates. Moist mucosa NECK: Normal ROM, supple, no lymphadenopathy, JVD, or masses LUNGS: No distress, speaks full sentences, clear to auscultation bilaterally HEART: Regular rate and rhythm, normal S1 and S2, no murmurs, rubs or gallops, peripheral pulses normal and equal bilaterally. EXTREMITIES: Normal inspection, Normal range of motion, no edema. No clubbing or cyanosis. NEUROLOGICAL: Cranial nerves II through XII grossly intact. Normal speech, no focal sensorimotor deficits SKIN: Warm, Dry, normal turgor, no rashes or lesions noted. ED Treatment Course - RADIOLOGY Radiology Studies Ordered: Category Date Time Status KNEE 3 POS-LEFT [RAD] Stat Radiology 06/26/18 09:10 Ordered Medical Decision Making - Medical Decision Making 06/26/18 09:26 Patient is 47F here today with knee pain. Exam normal. Vitals normal. Low suspicion for fracture. Will treat with motrin and ice. Will evaluate further with x-ray. X-rays negative. Discharged home with crutches per patient request. *DC/Admit/Observation/Transfer Diagnosis at time of Disposition: Knee sprain - Discharge Dispostion Disposition: HOME Condition at time of disposition: Good Decision to Admit order: No - Referrals - Patient Instructions Printed Discharge Instructions: DI for Knee Pain Additional Instructions: Please follow up with orthopedic doctor for your kene pain. Please return if you have any increasing pain, fever or are unable to bear weight. - Post Discharge Activity
--- NOTE | 2018-06-26 09:44 | PDOC ---
Attending Attestation - Resident Resident Name: Elvin Stuart - ED Attending Attestation I have performed the following: I have examined & evaluated the patient, The case was reviewed & discussed with the resident, I agree w/resident's findings & plan, Exceptions are as noted - HPI HPI: 06/26/18 09:42 Ms Turner is a 47-year-old female presenting to the emergency department for evaluation of knee pain status post fall. Patient presents ambulatory to the emergency department reporting pain. - Physicial Exam PE: 06/26/18 09:43 On examination: Patient is awake, alert, oriented. Answers all questions. Heart is regular rate and rhythm Lungs are clear to auscultation Knee is tender to palpation. She is able to actively range me, no deformities noted, stable to anterior and posterior drawer. - Medical Decision Making 06/26/18 09:44 Likely musculoskeletal pain vs meniscal injury will do X ray Analgesia Anticipate d/c with ortho follow up 06/26/18 10:47 Xray appears nml Will discharge to home Follow up with Ortho/PMD
== END 2018-06-26 11:00 | disposition home or self-care (01) ==
LOC: FER 09:02
DX: S83.92XA Sprain of unspecified site of left knee, initial encounter (principal); X58.XXXA Exposure to other specified factors, initial encounter; Y93.89 Activity, other specified; Y92.89 Other specified places as the place of occurrence of the external cause
CPT/HCPCS: 73562-TC-LT-FY; 99283-25

== ENCOUNTER 2021-11-23 00:19 | Emergency (ER) | payer OTHER ==
[2021-11-23] MEDS ORDERED: CIPROFLOXACIN 0.3% EYE DROPS 5 ML BOTTLE OU STA (00:23)
[2021-11-23 00:27] VITALS: BP 156/102; PULSE 75; TEMP 98.2; BMI 39.6
[2021-11-23] MEDS ORDERED: CIPROFLOXACIN HCL 0.3% OPHTH 2.5ML BOTTLE ONE (00:27)
== END 2021-11-23 00:32 | disposition home or self-care (01) ==
LOC: FER 00:19
DX: H10.32 Unspecified acute conjunctivitis, left eye (principal)
CPT/HCPCS: 99283-25

== ENCOUNTER 2023-09-07 08:30 | Day surgery (SDC) | payer OTHER ==
[2023-09-05 09:15] VITALS: BMI 37.8
[2023-09-07] MEDS ORDERED: LIDOCAINE HCL 2% (20ML MULTI-DOSE VIAL) ONE (09:24)
[2023-09-07] MEDS ORDERED: PROPOFOL 20 ML ONE (09:27)
[2023-09-07] MEDS ORDERED: MIDAZOLAM HCL 2 MG/2 ML SINGLE DOSE VIAL ONE (09:27)
[2023-09-07] MEDS ORDERED: oxyCODONE HCL 5 MG TABLET PO PRN (10:12)
[2023-09-07] MEDS ORDERED: ONDANSETRON 4 MG/2 ML VIAL IVPUSH PRN (10:12)
[2023-09-07] MEDS ORDERED: LACTATED RINGERS SOLUTION 1,000 ML IV SCH (10:15)
[2023-09-07] MEDS ORDERED: ACETAMINOPHEN INJECTION 100 ML IVPB ONE (10:38)
[2023-09-07] MEDS ORDERED: ACETAMINOPHEN 1000 MG/100 ML BAG IVPB ONE (10:39)
[2023-09-07 10:48] VITALS: RESP 18
[2023-09-07 12:00] VITALS: TEMP 97.6
[2023-09-07 12:45] VITALS: BP 116/64; PULSE 67
== END 2023-09-07 12:48 | disposition home or self-care (01) ==
LOC: FASU 08:30
PROVIDERS: ATTEND Orthopaedic Surgery Hand Surgery
PROC: 01N50ZZ Release Median Nerve, Open Approach (ICD-10-PCS; principal; 2023-09-07 09:50)
DX: G56.02 Carpal tunnel syndrome, left upper limb (principal)
CPT/HCPCS: 82962; 94760